=== PATIENT | male | born 2000 | race Caucasian/White ===

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

== ENCOUNTER 2019-07-14 10:33 | Emergency (ER) | payer OTHER, SELFPAY ==
[~2019-07-14] VITALS: Ht 185.4 cm; Wt 115.1 kg
[~2019-07-14 10:33] MED LIST changes: +CLEO300C2 PO; +IBUP-1022 PO; -IBUP600T26 PO; +LISI10TA4 PO; +OMEP-172 PO; -OMEP20CA3 PO
--- NOTE | 2019-07-14 11:38 | REP ---
Clinical: Left testicular swelling. Technique: Real time albarado scale and color Doppler evaluation using linear high frequency transducer. Findings: Large simple left hydrocele noted. No obvious hyperemia or scrotal wall thickening is appreciated. The bilateral testicles and epididymi are normal in contour, size, echogenicity and vascularity without torsion, infectious/inflammatory process or mass lesion. No varicocele. Right testicle measures 4.6 x 2.5 x 3.0 cm. Left testicle measures 4.8 x 2.9 x 3.0 cm. Impression: 1. Large simple left hydrocele. 2. Otherwise normal scrotal ultrasound. Electronically Signed by Kojo Chaney MD 07/14/2019 11:30 A
[2019-07-14 12:51] LABS: CHLAMYDIA DNA AMPLIFICATION NEGATIVE (NEGATIVE); GC DNA AMPLIFICATION NEGATIVE (NEGATIVE)
[2019-07-14 13:23] VITALS: BP 148/68
[2019-07-16 14:56] LABS: HEPATITIS B SURFACE ANTIBODY NEGATIVE (POSITIVE); HEPATITIS B SURFACE ANTIGEN NEGATIVE (NEGATIVE); HEPATITIS C VIRUS ABY INDEX 0.2 INDEX (<0.8)
== END 2019-07-14 13:27 | disposition home or self-care (01) ==
LOC: M ED 10:33
DX: N43.3 Hydrocele, unspecified (principal); Z88.7 Allergy status to serum and vaccine

== ENCOUNTER → 2019-07-26 | Outpatient (CLI) | payer OTHER, SELFPAY ==
[~2019-07-26] MED LIST changes: -OMEP-172 PO; +OMEP1CAP73 PO
[2019-07-26 13:34] LABS: HEMATOCRIT 50.4 % (42.0-52.0); HEMOGLOBIN 15.9 g/dl (13.5-17.5); MEAN CORPUSCULAR HEMOGLOBIN 28.2 pg (27.0-33.0); MEAN CORPUSCULAR HGB CONC 31.5 g/dl (32.0-36.5); MEAN CORPUSCULAR VOLUME 89.4 fl (80.0-96.0); PLATELET COUNT, AUTOMATED 253 10^3/uL (150-450); RED BLOOD COUNT 5.64 10^6/uL (4.30-6.10); WHITE BLOOD COUNT 7.5 10^3/uL (4.0-10.0)
[2019-07-26 13:54] LABS: INR 0.96; PROTHROMBIN TIME 12.5 SECONDS (11.8-14.0)
[2019-07-26 13:55] LABS: PARTIAL THROMBOPLASTIN TIME 25.9 SECONDS (25.0-38.4)
[2019-07-26 14:09] LABS: BLOOD UREA NITROGEN 14 MG/DL (7-18); CALCIUM LEVEL 8.9 MG/DL (8.5-10.1); CARBON DIOXIDE LEVEL 30 MEQ/L (21-32); CHLORIDE LEVEL 105 MEQ/L (98-107); CREATININE FOR GFR 0.79 MG/DL (0.70-1.30); GLUCOSE, FASTING 89 MG/DL (70-100); POTASSIUM SERUM 4.4 MEQ/L (3.5-5.1); SODIUM LEVEL 140 MEQ/L (136-145)
== END ==
LOC: M LAB 13:02
PROVIDERS: ATTEND Nurse Practitioner Women's Health
DX: Z01.818 Encounter for other preprocedural examination (principal); N43.3 Hydrocele, unspecified

== ENCOUNTER 2019-08-01 08:09 | Day surgery (SDC) | payer MEDICAID, OTHER, SELFPAY ==
[~2019-08-01] VITALS: Ht 185.4 cm; Wt 116.5 kg
[~2019-08-01 08:09] MED LIST changes: +LR 1,000 ML IV ONE; +ceFAZolin SOD 2 GM in IV 1 EA IV ONE
[2019-08-01] MEDS ORDERED: LIDOCAINE 1% MDV 20ML VIAL As Ordered ONE (10:49)
[2019-08-01] MEDS ORDERED: BUPIVACAINE HCL 0.5% 10 ML VIAL As Ordered ONE (10:49)
[2019-08-01] MEDS ORDERED: BACITRACIN OINT 30GM As Ordered ONE (10:50)
[2019-08-01] MEDS ORDERED: propofoL 200 MG/20 ML VIAL As Ordered ONE ×4 (11:03→12:11)
[2019-08-01] MEDS ORDERED: ACETAMINOPHEN 1000MG 100ML IV BTL (OFIRMEV) (J0131 PER 10MG) As Ordered ONE (11:03)
[2019-08-01] MEDS ORDERED: KETOROLAC 60 MG/2 ML VIAL (J1885) As Ordered ONE (11:03)
[2019-08-01] MEDS ORDERED: KETAMINE HCL 200 MG/20 ML VIAL As Ordered ONE (11:03)
[2019-08-01] MEDS ORDERED: ONDANSETRON 4MG/2ML VIAL (J2405) As Ordered ONE (11:03)
[2019-08-01] MEDS ORDERED: dexameTHASONE 4 MG/ML 1ML VIAL (J1100) As Ordered ONE ×2 (11:03→11:30)
[2019-08-01] MEDS ORDERED: LIDOCAINE 2% INJ 100 MG/5 ML SDV (FOR ANES.) As Ordered ONE (11:03)
[2019-08-01] MEDS ORDERED: fentaNYL 250 MCG/5 ML INJECTION (J3010) As Ordered ONE (11:04)
[2019-08-01] MEDS ORDERED: MIDAZOLAM INJ 2 MG/2 ML VIAL (J2250) As Ordered ONE (11:04)
[2019-08-01] MEDS ORDERED: BUPIVACAINE HCL 0.25% 10 ML VIAL As Ordered ONE (11:15)
[2019-08-01] MEDS ORDERED: fentaNYL 100 MCG/2 ML INJECTION (J3010) As Ordered ONE (13:14)
[2019-08-01] MEDS: fentaNYL 100 MCG/2 ML INJECTION (J3010) IV PRN ×4 (13:15→13:34)
[2019-08-01] MEDS ORDERED: ONDANSETRON 4MG/2ML VIAL (J2405) IV PRN (14:00)
[2019-08-01] MEDS ORDERED: oxyCODONE 5MG TAB PO PRN (14:00)
[2019-08-01 14:55] VITALS: BP 139/78
[2019-08-01] MEDS ORDERED: PERCOCET 5MG/325MG TAB PO PRN (15:00)
--- NOTE | 2019-08-02 09:44 | RO ---
DATE OF PROCEDURE: 08/01/2019 PREPROCEDURE DIAGNOSIS: Left hydrocele. POSTPROCEDURE DIAGNOSIS: Left hydrocele. PROCEDURE: Left hydrocelectomy. SURGEON: Can Montelongo MD SHREDDER/GRANULATOR OPERATOR: None. ANESTHESIA: General. OPERATIVE INDICATIONS: This is a 19-year-old male who has a large symptomatic left hydrocele. He was brought to the operating room today for the above listed procedure. DESCRIPTION OF PROCEDURE: The patient was brought to the operating room where general anesthesia was induced. Prophylactic antibiotics were infused. He was then placed in the lithotomy position and prepped and draped in the usual sterile fashion. An approximately 4 cm transverse incision was made over the left hemiscrotum and then dissected down through the scrotal wall layers and in the testicle was delivered outside the left hemiscrotum. The tunica vaginalis was then opened and simple hydrocele fluid drained. The hydrocele sac was then excised using electrocautery. I then oversewed the edges of the hydrocele sac with a running 3-0 Vicryl suture. Once this was done, hemostasis was obtained using electrocautery. Once satisfied with hemostasis, the testicle was delivered back into the left hemiscrotum in anatomic position. The dartos muscle was then closed with a running 3-0 Vicryl suture. The skin was then closed with interrupted 2-0 chromic sutures. Local anesthetic was then applied. Dressings were applied and this marked conclusion of the procedure. The patient was then awakened from anesthesia and transferred to the recovery room in stable condition. ESTIMATED BLOOD LOSS: 5 mL. COMPLICATIONS: None. SPECIMENS: Left hydrocele sac. PLAN: The patient will followup in the clinic in a few weeks for postoperative visit. ROSI
== END 2019-08-01 14:55 | disposition home or self-care (01) ==
LOC: M SDC 08:09
PROVIDERS: ATTEND Urology
DX: N43.3 Hydrocele, unspecified (principal); I10 Essential (primary) hypertension; J45.909 Unspecified asthma, uncomplicated; Z88.7 Allergy status to serum and vaccine
CPT/HCPCS: 55040; 88302; J0131; J0690; J1100; J1885; J2250; J2405; J3010

== ENCOUNTER 2019-08-08 18:09 | Emergency (ER) | payer MEDICAID, OTHER, SELFPAY ==
[~2019-08-08] VITALS: Ht 185.4 cm; Wt 104.5 kg
[~2019-08-08 18:09] MED LIST changes: -LR 1,000 ML IV ONE; -ceFAZolin SOD 2 GM in IV 1 EA IV ONE
[2019-08-08] MEDS ORDERED: OXYC1TAB23 (18:29)
[2019-08-08] MEDS ORDERED: NS 1,000 ML IV ONE (19:00)
[2019-08-08] MEDS ORDERED: diazePAM 10 MG/2 ML INJ (J3360) IV ONE (19:00)
[2019-08-08] MEDS ORDERED: KETOROLAC 30 MG/ML VIAL (J1885) IV ONE (19:00)
[2019-08-08] MEDS ORDERED: ACETAMINOPHEN 325 MG/10.15 ML UDC PO ONE ×2 (19:00)
[2019-08-08] MEDS ORDERED: ACETAMINOPHEN 325 MG TAB PO ONE (19:00)
[2019-08-08 20:34] LABS: BASO # 0.1 10^3/uL (0.0-0.2); BASO % 0.4 % (0.0-1.0); EOS # 0.4 10^3/uL (0.0-0.5); EOS % 3.9 % (0.0-3.0); HEMATOCRIT 48.6 % (42.0-52.0); HEMOGLOBIN 15.2 g/dl (13.5-17.5); LYMPH # 2.6 10^3/uL (1.5-5.0); LYMPH % 22.9 % (24.0-44.0); MEAN CORPUSCULAR HEMOGLOBIN 27.7 pg (27.0-33.0); MEAN CORPUSCULAR HGB CONC 31.3 g/dl (32.0-36.5); MEAN CORPUSCULAR VOLUME 88.7 fl (80.0-96.0); MONO # 1.2 10^3/uL (0.0-0.8); MONO % 10.4 % (0.0-5.0); PLATELET COUNT, AUTOMATED 238 10^3/uL (150-450); RED BLOOD COUNT 5.48 10^6/uL (4.30-6.10); WHITE BLOOD COUNT 11.3 10^3/uL (4.0-10.0)
--- NOTE | 2019-08-08 20:35 | REPVR ---
PROCEDURE INFORMATION: Exam: CT Lumbar Spine Without Contrast Exam date and time: 08/08/2019 8:16 PM Age: 19 years old Clinical indication: Low back pain; Additional info: Low back pain after forceful cough TECHNIQUE: Imaging protocol: Computed tomography images of the lumbar spine without contrast. Radiation optimization: All CT scans at this facility use at least one of these dose optimization techniques: automated exposure control; mA and/or kV adjustment per patient size (includes targeted exams where dose is matched to clinical indication); or iterative reconstruction. COMPARISON: No relevant prior studies available. FINDINGS: Vertebrae: No acute fracture. Normal alignment. Discs/Spinal canal/Neural foramina: There is a moderate central spinal stenosis at L3-L4 secondary to diffuse annular bulging, thickened ligamentum flavum without facet joint arthropathy. There is a moderate central spinal stenosis at L4-L5 secondary to diffuse annular bulging, congenitally shortened pedicles, thickened ligamentum flavum without facet joint arthropathy. Soft tissues: Unremarkable. IMPRESSION: Moderate central spinal stenosis at L3-L4 and L4-L5 as described above. Electronically signed by: Lionel Grande On 08/08/2019 20:30:29 PM
[2019-08-08 20:59] LABS: ERYTHROCYTE SEDIMENTATION RATE 3 mm/hr (0-15)
[2019-08-08 21:09] LABS: BLOOD UREA NITROGEN 21 MG/DL (7-18); C REACTIVE PROTEIN QUANTITATIV 0.48 MG/DL (0.00-0.30); CALCIUM LEVEL 8.6 MG/DL (8.5-10.1); CARBON DIOXIDE LEVEL 25 MEQ/L (21-32); CHLORIDE LEVEL 109 MEQ/L (98-107); CREATININE FOR GFR 0.76 MG/DL (0.70-1.30); GLUCOSE, FASTING 92 MG/DL (70-100); POTASSIUM SERUM 3.3 MEQ/L (3.5-5.1); SODIUM LEVEL 141 MEQ/L (136-145)
[2019-08-08] MEDS ORDERED: methylPREDNISolone INJ 125 MG/2 ML VIAL (J2930) IV ONE (21:30)
[2019-08-08] MEDS ORDERED: LIDOCAINE 5% (LIDODERM) PATCH TD ONE (22:30)
[2019-08-08] MEDS ORDERED: ANEXSIA, NORCO 7.5MG/325MG TABLET(HYDROCODONE/APAP) PO ONE (22:30)
[2019-08-08] MEDS ORDERED: NORC1TAB7 PO (22:58)
[2019-08-08] MEDS ORDERED: METH4TAB8 PO (22:58)
[2019-08-08] MEDS ORDERED: KETO10TAB PO (22:58)
[2019-08-08] MEDS ORDERED: NORCO 5/325MG TABLET (BULK FOR ED) PO ONE (23:15)
[2019-08-08 23:40] VITALS: BP 133/71
[2019-08-09] MEDS ORDERED: **NOTE PATIENT COMMENT** MISC XX SCH (21:00)
== END 2019-08-08 23:40 | disposition home or self-care (01) ==
LOC: EDBD 18:09 → M ED 18:09
DX: M48.061 Spinal stenosis, lumbar region without neurogenic claudication (principal); M54.5 Low back pain; Z88.7 Allergy status to serum and vaccine; Z79.891 Long term (current) use of opiate analgesic
CPT/HCPCS: 72131; 80048; 85025; 85652; 86140; 96374; 96375; 99284; J1885; J2930; J3360

== ENCOUNTER 2019-08-23 10:42 | Emergency (ER) | payer MEDICAID, OTHER ==
[~2019-08-23] VITALS: Ht 185.4 cm; Wt 116.7 kg
[~2019-08-23 10:42] MED LIST changes: +KETO10TAB PO; +METH4TAB8 PO; +NORC1TAB7 PO; +OXYC1TAB23
[2019-08-23 10:43] VITALS: BP 156/80
[2019-08-23] MEDS ORDERED: ACETGRA (10:50)
== END 2019-08-23 12:22 | disposition left against medical advice (07) ==
LOC: M ED 10:42
DX: Z53.21 Procedure and treatment not carried out due to patient leaving prior to being seen by health care provider (principal)